=== PATIENT | male | born 1970 | race Caucasian/White ===

== ENCOUNTER → 2021-05-24 | Outpatient (CLI) | payer BC ==
--- NOTE | 2021-05-24 11:14 | XR ---
EXAMINATION TYPE: XR KUB DATE OF EXAM: 05/24/2021 COMPARISON: NONE HISTORY: Hematuria TECHNIQUE: One view abdominal series FINDINGS: The osseous structures are intact. The bowel gas pattern is nonspecific. There is a 8 mm left renal calculus. Calcifications in pelvis are nonspecific but likely vascular. Spina bifida occulta sacrum i ncidentally noted. IMPRESSION: 1. 8mm mid pole left renal calculus. Consider CT scan follow up.
== END | disposition home or self-care (01) ==
LOC: RADXRMAIN 10:49
PROVIDERS: ATTEND Urology
DX: N20.0 Calculus of kidney (principal)
CPT/HCPCS: 74018

== ENCOUNTER → 2021-06-07 | Outpatient (CLI) | payer BC ==
--- NOTE | 2021-06-07 11:49 | CT ---
EXAMINATION TYPE: CT abdomen pelvis wo con DATE OF EXAM: 06/07/2021 COMPARISON: Radiograph 05/24/2021 HISTORY: 51-year-old male Microhematuria, History of renal stones, Pain in scrotum CT DLP: 1200 mGycm. Automated exposure control for dose reduction was used. TECHNIQUE: Contiguous axial scanning of the abdomen and pelvis without IV contrast. Coronal and sagit daisy reconstructions performed. FINDINGS: Heart normal size without pericardial effusion. Lung bases clear without pleural effusion. Tiny hiatal hernia. Liver normal size but with low attenuation suggesting fatty infiltration. Gallbladder, adrenal glands, spleen, and pancreas within normal limits. Bilateral renal cysts are present, largest measuring 8.0 cm on the right and 8.9 cm on the left. Smal ler lesions are too small for accurate CT characterization and also inadequately characterized on thi s noncontrast study. Cysts are suspected. Consider a 6-12 month follow-up CT to ensure stability of t hese lesions. There are 2 nonobstructive left renal calculi measuring 1 cm and 3 mm. No hydronephrosis on either side. No suspicious calcification along the course of either ureter. No dilated small bowel, free fluid, or free air. No mesenteric or retroperitoneal lymphadenopathy. Normal appendix. Mild stool within the right side of the colon. No pericolic inflammatory change. A few pelvic phlebolith. Bladder partially distended. Prostate gland measures 4.6 cm wide, mildly enl arged. No abnormal fluid collection in the pelvis or pelvic lymphadenopathy. Bones: Mild degenerative change of the hips. Degenerative bridging bony spurring left SI joint. Facet arthropathy mid to lower lumbar spine. Mild degenerative disc disease L5-S1. IMPRESSION: 1. A couple nonobstructive left renal calculi measuring 1.0 cm and 3 mm. No hydronephrosis on either side. 2. Bilateral renal cysts measuring up to 8.9 cm on the left and 8.0 cm on the right. Correlate wheth er these could be symptomatic due to mass effect onto the adjacent renal parenchyma. 3. Smaller hypodense lesions within the kidneys also probably represent cysts. 6-12 month follow-up CT to ensure stability of these lesions. 4. At least mild hepatic steatosis. Tiny hiatal hernia. Mild prostatomegaly at 4.6 cm wide.
== END | disposition home or self-care (01) ==
LOC: RADCTMAIN 09:38
PROVIDERS: ATTEND Urology
DX: N20.0 Calculus of kidney (principal); N28.1 Cyst of kidney, acquired; K76.0 Fatty (change of) liver, not elsewhere classified; K44.9 Diaphragmatic hernia without obstruction or gangrene; N40.0 Benign prostatic hyperplasia without lower urinary tract symptoms
CPT/HCPCS: 74176

== ENCOUNTER 2021-07-01 09:05 | Day surgery (SDC) | payer BC ==
[2021-06-27 12:50] VITALS: BMI 34.4
--- NOTE | 2021-07-01 06:45 | P.GSHP ---
History of Present Illness H&P Date: 07/01/21 Chief Complaint: Flank pain The patient is a 51-year-old white male with a history of urolithiasis. He reports lower back pain, predominantly left-sided. CT scan shows bilateral large renal cysts, and 2 left lower pole renal calculi measuring 1 cm and 3 mm. Alternative treatment options have been reviewed, and he has elected to undergo extracorporal shockwave lithotripsy (ESWL). - Constitutional Constitutional: Denies chills, Denies fever - Gastrointestinal Gastrointestinal: Reports heartburn, Reports indigestion - Genitourinary (Male) Genitourinary: Reports flank pain, Reports kidney stones Past Medical History Past Medical History: GERD/Reflux Additional Past Medical History / Comment(s): KIDNEY STONES History of Any Multi-Drug Resistant Organisms: None Reported Additional Past Surgical History / Comment(s): COLONOSCOPY Past Anesthesia/Blood Transfusion Reactions: No Reported Reaction Smoking Status: Never smoker - Past Family History Mother Family Medical History: Cancer Medications and Allergies Home Medications Medication Instructions Recorded Confirmed Type Ibuprofen 400 mg PO Q8H PRN 06/27/21 06/27/21 History Omeprazole 20 mg PO DAILY 06/27/21 06/27/21 History clonazePAM [KlonoPIN] 0.5 mg PO BID PRN 06/27/21 06/27/21 History Allergies Allergy/AdvReac Type Severity Reaction Status Date / Time No Known Allergies Allergy Verified 06/27/21 12:43 Surgical - Exam - General well developed, well nourished, no distress - Neck no masses, trachea midline - Respiratory normal respiratory effort - Abdomen Abdomen: soft, non tender, no guarding, no rigid, no rebound - Genitourinary other (Circumcised phallus with multiple penile condyloma. Bilateral varicocele. Normal scrotum and testes.) - Psychiatric oriented to time, oriented to person, oriented to place, speech is normal, memory intact Results - Imaging CT scan - abdomen: report reviewed, image reviewed Assessment and Plan (1) Calculus of kidney Status: Acute Code(s): N20.0 - CALCULUS OF KIDNEY SNOMED Code(s): 50161404 Plan: I had a lengthy discussion with the patient regarding his left renal calculi. Options discussed were observation, ESWL, and ureteroscopy with laser lithotripsy. The pros, cons, and risks of each approach was reviewed in detail. The patient has elected to undergo ESWL, performed by Dr. Browning. He is aware of potential risks, which include anesthesia, renal contusion, perinephric hematoma, treatment failure, incomplete fragmentation, and Stein[address].
[~2021-07-01 09:05] MED LIST: LACTATED RINGERS 1,000 ML IV SCH
[2021-07-01] MEDS ORDERED: ONDANSETRON 4 MG/2 ML VIAL ONE (09:44)
--- NOTE | 2021-07-01 09:44 | XR ---
KUB HISTORY: Kidney stones Frontal KUB and 2 images correlated prior KUB 05/24/2021 The calcification seen at the lower pole the left kidney is again noted. There are phleboliths within the pelvis. No evident bowel obstruction or pneumoperitoneum. IMPRESSION: Left-sided nephrolithiasis.
[2021-07-01 09:47] VITALS: TEMP 97.1
[2021-07-01 10:12] LABS: Basophils # (A) 0.1 k/uL (0-0.2); Basophils % (A) 1 %; Eosinophils # (A) 0.5 k/uL (0-0.7); Eosinophils % (A) 8 %; HCT 50.2 % (39.0-53.0); HGB 16.9 gm/dL (13.0-17.5); Lymphocytes # (A) 2.4 k/uL (1.0-4.8); Lymphocytes % (A) 35 %; MCH 31.3 pg (25.0-35.0); MCHC 33.6 g/dL (31.0-37.0); MCV 93.1 fL (80.0-100.0); Mean Platelet Volume 8.5; Monocytes # (A) 0.4 k/uL (0-1.0); Monocytes % (A) 6 %; Neutrophils # (A) 3.2 k/uL (1.3-7.7); Neutrophils % (A) 47 %; Platelet Count 152 k/uL (150-450); RBC 5.39 m/uL (4.30-5.90); RDW 11.8 % (11.5-15.5); WBC 6.8 k/uL (3.8-10.6)
[2021-07-01] MEDS ORDERED: PROPOFOL 10 MG/ML 20 ML VIAL IV ONE (10:23)
[2021-07-01] MEDS ORDERED: fentaNYL (PF) 50 MCG/ML 2 ML AMP ONE (10:23)
[2021-07-01] MEDS ORDERED: MIDAZOLAM 2 MG/2 ML VIAL ONE (10:23)
[2021-07-01 10:38] LABS: ALT 37 U/L (4-49); AST 32 U/L (17-59); African American GFR (CKD) >90 (>60 ml/min/1.73 sqM); Albumin 3.9 g/dL (3.5-5.0); Alkaline Phosphatase 104 U/L (38-126); Anion Gap 7 mmol/L; Blood Urea Nitrogen 15 mg/dL (9-20); Calcium 9.1 mg/dL (8.4-10.2); Carbon Dioxide 25 mmol/L (22-30); Chloride 108 mmol/L (98-107); Glucose 99 mg/dL (74-99); Non-African American GFR(CKD) >90 (>60 ml/min/1.73 sqM); Potassium 4.6 mmol/L (3.5-5.1); Sodium 140 mmol/L (137-145); Total Bilirubin 0.8 mg/dL (0.2-1.3); Total Protein 6.5 g/dL (6.3-8.2)
--- NOTE | 2021-07-01 10:52 | P.OP ---
Date of Procedure: 07/01/21 Preoperative Diagnosis: Renal stone,left Postoperative Diagnosis: Same Procedure(s) Performed: ESWL, 1750 shocks at energy level IV and rate of 80 Anesthesia: MAC Surgeon: Nick Browning Estimated Blood Loss (ml): 0 Pathology: none sent Condition: stable Disposition: PACU Indications for Procedure: The patient is 51. He has a 5 mm left lower pole stone. He comes for shockwave lithotripsy because of discomfort Description of Procedure: The patient is brought to the operating table. The stone was seen in 2 views of fluoroscopy. 1750 shocks at energy level IV and a rate of 80 is administered. The stone fractures nicely. End of the procedure the patient is awake and returned condition. Patellar procedure well be discharged upon recovery
[2021-07-01 11:39] VITALS: RESP 16
[2021-07-01 11:48] VITALS: BP 119/79; PULSE 59
== END 2021-07-01 12:22 | disposition home or self-care (01) ==
LOC: ORWHC2ENDO 09:05
PROVIDERS: ATTEND Urology
DX: N20.0 Calculus of kidney (principal); K21.9 Gastro-esophageal reflux disease without esophagitis
CPT/HCPCS: 50590; 80053; 85025; 74018; J2250; J3010; J2704

== ENCOUNTER → 2021-07-09 | Outpatient (CLI) | payer BC ==
--- NOTE | 2021-07-09 12:44 | XR ---
KUB HISTORY: Renal calculi Frontal KUB on 2 images correlated to prior KUB 07/01/2021 Calcifications within the pelvis are felt likely to be paper sales representative of phleboliths, stable. The berto cifications seen overlying the left kidney on prior exam shows a probable fragmented appearance. Ther e are likely 3-4 calcifications, largest approximately 5 mm. There is retained fecal debris throughou t the distribution of the colon. Lung bases are clear. Bone mineralization is normal. IMPRESSION: Post lithotripsy findings
== END | disposition home or self-care (01) ==
LOC: RADXRMAIN 09:06
PROVIDERS: ATTEND Urology
DX: N20.0 Calculus of kidney (principal)
CPT/HCPCS: 74018

== ENCOUNTER → 2021-07-25 | Outpatient (CLI) | payer BC ==
[2021-07-25 09:59] LABS: Basophils # (A) 0.1 k/uL (0-0.2); Basophils % (A) 1 %; Eosinophils # (A) 0.3 k/uL (0-0.7); Eosinophils % (A) 3 %; HCT 50.1 % (39.0-53.0); HGB 17.4 gm/dL (13.0-17.5); Lymphocytes # (A) 3.5 k/uL (1.0-4.8); Lymphocytes % (A) 38 %; MCH 31.9 pg (25.0-35.0); MCHC 34.7 g/dL (31.0-37.0); MCV 91.9 fL (80.0-100.0); Monocytes # (A) 0.6 k/uL (0-1.0); Monocytes % (A) 6 %; Neutrophils # (A) 4.6 k/uL (1.3-7.7); Neutrophils % (A) 50 %; Platelet Count 202 k/uL (150-450); RBC 5.45 m/uL (4.30-5.90); RDW 12.6 % (11.5-15.5); WBC 9.3 k/uL (3.8-10.6)
[2021-07-25 10:17] LABS: African American GFR (CKD) >90 (>60 ml/min/1.73 sqM); Anion Gap 8 mmol/L; Blood Urea Nitrogen 12 mg/dL (9-20); Calcium 9.3 mg/dL (8.4-10.2); Carbon Dioxide 27 mmol/L (22-30); Chloride 105 mmol/L (98-107); Glucose 84 mg/dL (74-99); Non-African American GFR(CKD) >90 (>60 ml/min/1.73 sqM); Potassium 4.3 mmol/L (3.5-5.1); Sodium 140 mmol/L (137-145)
== END | disposition home or self-care (01) ==
LOC: LABPAT 09:17
PROVIDERS: ATTEND Urology
DX: Z01.812 Encounter for preprocedural laboratory examination (principal)
CPT/HCPCS: 80048; 85025

== ENCOUNTER 2021-08-01 06:55 | Day surgery (SDC) | payer BC ==
[2021-07-29 11:00] VITALS: BMI 33.1
--- NOTE | 2021-08-01 06:34 | P.GSHP ---
History of Present Illness H&P Date: 08/01/21 Chief Complaint: Penile condyloma The patient is a 51-year-old white male with a history of urolithiasis. He recently presented with lower back pain, predominantly left-sided. CT scan showed bilateral large renal cysts, and 2 left lower pole renal calculi measuring 1 cm and 3 mm. He underwent extracorporal shockwave lithotripsy (ESWL). At the time of his initial presentation, he was noted to have multiple penile condyloma for which he has elected to undergo CO2 laser ablation. - Constitutional Constitutional: Denies chills, Denies fever - Gastrointestinal Gastrointestinal: Reports heartburn, Reports indigestion - Genitourinary (Male) Genitourinary: Reports kidney stones Past Medical History Past Medical History: GERD/Reflux, Skin Disorder Additional Past Medical History / Comment(s): Hx kidney stones. Penile condyloma current. History of Any Multi-Drug Resistant Organisms: None Reported Additional Past Surgical History / Comment(s): COLONOSCOPY. ESWL Past Anesthesia/Blood Transfusion Reactions: No Reported Reaction Smoking Status: Never smoker - Past Family History Mother Family Medical History: Cancer Medications and Allergies Home Medications Medication Instructions Recorded Confirmed Type Omeprazole 20 mg PO DAILY PRN 06/27/21 07/29/21 History clonazePAM [KlonoPIN] 0.5 mg PO BID PRN 06/27/21 07/29/21 History Allergies Allergy/AdvReac Type Severity Reaction Status Date / Time No Known Allergies Allergy Verified 07/29/21 10:44 Surgical - Exam - General well developed, well nourished, no distress - Respiratory normal respiratory effort - Abdomen Abdomen: soft, non tender, no guarding, no rigid, no rebound - Genitourinary Circumcised phallus with approximately 10 penile condyloma measuring up to 5 mm in size. Normal scrotum. Normal testes. Bilateral varicocele. - Psychiatric oriented to time, oriented to person, oriented to place, speech is normal, memory intact Assessment and Plan (1) Anogenital (venereal) warts Status: Acute Code(s): A63.0 - ANOGENITAL (VENEREAL) WARTS SNOMED Code(s): 410013226 Plan: CO2 laser ablation of penile condyloma. The procedures been reviewed in detail with the patient. He has been made aware of potential risks, which include anesthesia, bleeding, infection, scarring, and recurrent condyloma.
[~2021-08-01 06:55] MED LIST changes: +DEXAMETHASONE SOD PHOSPHATE 4 MG/ML 1 ML VIAL IV ONE; +HYDROmorphone 0.5 MG/0.5 ML SYRINGE IVP PRN; +LIDOCAINE 1% (10MG/ML) FOR IV START INTRADERMA PRN; +MIDAZOLAM 2 MG/2 ML VIAL IV PRN; +ONDANSETRON 4 MG/2 ML VIAL IVP ONE
[2021-08-01] MEDS ORDERED: SUCCINYLCHOLINE CHLORIDE 100 MG/5 ML SYR IV ONE (08:27)
[2021-08-01] MEDS ORDERED: LIDOCAINE 1% INJ 10MG/ML (20 ML MDV) ONE (08:27)
[2021-08-01] MEDS ORDERED: PROPOFOL 10 MG/ML 20 ML VIAL IV ONE (08:27)
[2021-08-01] MEDS ORDERED: MIDAZOLAM 2 MG/2 ML VIAL ONE (08:27)
[2021-08-01] MEDS ORDERED: fentaNYL (PF) 50 MCG/ML 2 ML AMP ONE (08:27)
[2021-08-01] MEDS ORDERED: BUPIVACAINE (PF) 0.5% 30 ML VIAL SQ ONE (08:47)
[2021-08-01] MEDS ORDERED: ACETIC ACID 15 DROPS/ML DROPS MISCELLANE ONE (09:03)
[2021-08-01] MEDS ORDERED: BACITRACIN ZINC 500 UNIT/GM OINT 28.4 GM TUBE TOPICAL ONE (09:05)
[2021-08-01 09:24] VITALS: TEMP 97
--- NOTE | 2021-08-01 09:42 | P.OP ---
Date of Procedure: 08/01/21 Preoperative Diagnosis: Penile condyloma Postoperative Diagnosis: Same Procedure(s) Performed: CO2 laser ablation of penile condyloma Anesthesia: JAYLYN Surgeon: Enzo Nolasco Estimated Blood Loss (ml): 200 Pathology: other (2 condyloma) Condition: stable Disposition: PACU Indications for Procedure: The patient is a 51-year-old white male found to have multiple penile condyloma, for which he has elected to undergo CO2 laser ablation. Operative Findings: Approximately 12 penile and prepucial the condyloma measuring up to 5 mm in size. Description of Procedure: Patient was taken to the operating room and placed in supine position. The external genitalia was prepped and draped sterilely. The penis, scrotum, and suprapubic regions were examined. 2 condyloma were noted in the prepubic region, and at least 10 on the phallus. 2 measured up to 5 mm in size, 1 in the pre-pubic region and the other at the right lateral penile base. Both were excised and sent to pathology. The base of the excision was cauterized using th e Bovie electrocautery. The remaining condyloma were flat, and were ablated using the CO2 laser. Once this was completed, acetic acid soaked gauze was placed over the external genitalia. No additional condyloma were seen. Upon completion of the procedure, bacitracin ointment was applied to all involved areas, and 0.25% Sensorcaine was injected subcutaneously at the penile base, circumferentially. The patient tolerated the procedure well was taken to the recovery room stable condition.
[2021-08-01 09:57] VITALS: PULSE 54
[2021-08-01 10:05] VITALS: BP 127/74; RESP 18
== END 2021-08-01 10:27 | disposition home or self-care (01) ==
LOC: OR 06:55
PROVIDERS: ATTEND Urology
DX: A63.0 Anogenital (venereal) warts (principal); K21.9 Gastro-esophageal reflux disease without esophagitis; F17.200 Nicotine dependence, unspecified, uncomplicated; Z87.442 Personal history of urinary calculi
CPT/HCPCS: 54060; 88305; J2250; J1100; J0690; J2405; J2001; J3010; J0330; J2704